=== PATIENT | female | born 1955 | race Caucasian/White ===

== ENCOUNTER → 2023-12-17 13:00 | Outpatient (REF) | payer MEDICARE, SELFPAY | LOC: MRI 3T 13:00 | PROVIDERS: ATTENDING PHYSICIAN Surgery; FAMILY PHYSICIAN Family Medicine | DX: K60.5 Anorectal fistula (principal) | CPT/HCPCS: 72197; A9575 ==

== ENCOUNTER → 2024-02-03 12:50 | Outpatient (REF) | payer MEDICARE, SELFPAY | LOC: SDSPAT 12:50 | PROVIDERS: ATTENDING PHYSICIAN Surgery; FAMILY PHYSICIAN Family Medicine | DX: K60.5 Anorectal fistula (principal); Z12.11 Encounter for screening for malignant neoplasm of colon | CPT/HCPCS: 36415; 93005 ==

== ENCOUNTER 2024-02-09 06:33 | Day surgery (SDC) | payer MEDICARE, SELFPAY ==
[2024-02-03 13:08] VITALS: BMI 18.3
--- NOTE | 2024-02-04 15:38 | PTCARENOTE ---
Abnormal ECG done on 02/03/24 was reviewed by ; no actions requested.
[2024-02-09 12:41] VITALS: BMI 18.3
[2024-02-09 12:44] VITALS: BP 131/81
[2024-02-09] MEDS: TYLENOL 1000 MG PO (12:54)
[2024-02-09] MEDS: NORMOSOL-R 1000 IV (12:54)
--- NOTE | 2024-02-09 14:33 | PTCARENOTE ---
Report given to Clotilde at 1425.
[2024-02-09 16:52] VITALS: BP 136/71
[2024-02-09 17:00] VITALS: BP 150/67
[2024-02-09 17:15] VITALS: BP 133/114
[2024-02-09 17:30] VITALS: BP 150/81
== END 2024-02-09 17:56 | disposition home or self-care (01) ==
LOC: SDS 06:33
PROVIDERS: ATTENDING PHYSICIAN Surgery; FAMILY PHYSICIAN Family Medicine
DX: Z12.11 Encounter for screening for malignant neoplasm of colon (principal); K60.5 Anorectal fistula
CPT/HCPCS: 46280; G0121